=== PATIENT | male | born 1960 | race Caucasian/White ===

== ENCOUNTER 2022-02-22 13:30 | Inpatient (IN) | payer OTHER ==
[~2022-02-22] VITALS: Ht 172.7 cm; Wt 79.4 kg
--- NOTE | 2022-02-22 13:30 | NUR ---
GIL RA73 from an outpatient clinic with c/o generalized weakness, sob, hypoxia and hyperglycemia. Per report pt went to the clinic for IV antibiotics for osteomyelitis, pt arrives with a PICC Line to rt arm. Per EMS pt's blood fepai=219. Pt to room 4B via EMS gurney, room air oxygen sat=84%, pt placed on oxygen mask and RT called as requested by .
[2022-02-22 13:55] LABS: ABG BASE EXCESS -1.3 mmol/L; ABG HCO3 23.5 mmol/L; ABG PCO2 39.7 mmHg (35.0-45.0); ABG PH 7.391 (7.350-7.450); ABG PO2 114.7 mmHg (75.0-100.0); ABG SITE LEFT RADIAL; ABG TOTAL HEMOGLOBIN 8.4 G/dL (13.5-18.0); COHb 0.3 % (0.5-1.5); MetHb 0.1 % (0.0-1.5); O2Hb 97.5 % (94.0-97.0)
[2022-02-22 14:06] LABS: HEMATOCRIT 23.1 % (36.7-47.1); MEAN CORPUSCULAR HEMOGLOBIN 30.9 uug (23.8-33.4); MEAN CORPUSCULAR VOLUME 91.4 fL (73.0-96.2); PLATELET COUNT (AUTO) 339 K/uL (152-348)
[2022-02-22 14:16] LABS: CARBON DIOXIDE 27 mmol/L (21-32); CHLORIDE 96 mmol/L (98-107); CREATININE 2.8 mg/dL (0.6-1.3); POTASSIUM 4.1 mmol/L (3.5-5.1); UREA NITROGEN, BLOOD 36 mg/dL (7-18)
[2022-02-22 14:18] LABS: GLUCOSE 565 mg/dL (74-106)
[2022-02-22 14:29] LABS: ALANINE AMINOTRANSFERASE 22 U/L (16-63); ALKALINE PHOSPHATASE 112 U/L (50-136); ASPARTATE AMINOTRANSFERASE 15 U/L (15-37); BILIRUBIN,TOTAL 0.2 mg/dL (0.2-1.0); TOTAL PROTEIN, SERUM 6.3 g/dL (6.4-8.2)
[2022-02-22 14:33] LABS: ACETAMINOPHEN < 2.0 ug/mL (10-30)
[2022-02-22] MEDS ORDERED: CEFTRIAXONE /D5W 50ML IVPB **ER PYXIS IV ONE (14:42)
[2022-02-22] MEDS ORDERED: AZITHROMYCIN 500MG/ D5W 250ML IVPB **ER PYXIS ONLY IV ONE (14:42)
[2022-02-22] MEDS ORDERED: AZITHROMYCIN IV 500 MG in IV DEXTROSE 5% 250 ML IV ONE (14:45)
[2022-02-22] MEDS ORDERED: CEFTRIAXONE 1 G in IV DEXTROSE 5% 50 ML IV ONE (14:45)
--- NOTE | 2022-02-22 14:57 | NUR ---
MILY PADILLA spoke to Dr Adam for cardiology consult.
--- NOTE | 2022-02-22 14:58 | NUR ---
Pt out of ER for Ct scan.
--- NOTE | 2022-02-22 15:15 | NUR ---
Pt back from Ct, removed his Oxygen mask and c/o being short of breath.
[2022-02-22 15:48] LABS: *AMPHETAMINE, URINE POSITIVE (NEGATIVE); *CANNABINOID, URINE NEGATIVE (NEGATIVE); *COCCAINE, URINE NEGATIVE (NEGATIVE); *OPIATE, URINE NEGATIVE (NEGATIVE); *PHENCYCLIDINE SCREEN,URINE NEGATIVE (NEGATIVE)
[2022-02-22] MEDS ORDERED: DEXTROSE 50% 50 ML DISP.SYRIN IV PRN (16:00)
[2022-02-22] MEDS ORDERED: IV NS 1000 ML 1,000 ML IV ONE (16:00)
[2022-02-22] MEDS ORDERED: INSULIN REGULAR, HUMAN 300 UNITS/3 ML VIAL SQ PRN (16:00)
[2022-02-22 16:04] LABS: *BILIRUBIN,URIN NEGATIVE (NEGATIVE); *BLOOD, URINE 1+ (NEGATIVE); *CLARITY,URINE CLEAR (CLEAR); *COLOR,URINE YELLOW (YELLOW); *KETONES,URINE NEGATIVE (NEGATIVE); *UROBILINOGEN,URINE 0.2 E.U./dl (NORMAL); LEUKOCYTE ESTERASE ,URINE NEGATIVE (NEGATIVE); NITRITE, URINE NEGATIVE (NEGATIVE); UGLUCOSE 2+ (NEGATIVE)
[2022-02-22] MEDS: BLOOD SUGAR DIAGNOSTIC 1 EACH STRIP VI SCH ×2 (16:38→21:24)
[2022-02-22] MEDS ORDERED: ASPIRIN 325 MG TABLET ONE (17:07)
[2022-02-22] MEDS ORDERED: ASPIRIN 81 MG TAB.CHEW PO ONE (17:15)
--- NOTE | 2022-02-22 18:50 | NUR ---
Pt refused to change to hospital gown.
--- NOTE | 2022-02-22 18:56 | NUR ---
Pt transfered to Tele bed 312.
--- NOTE | 2022-02-22 20:47 | NUR ---
RN called MARY; unable to locate pt's unit; need to follow up home meds;
[2022-02-22 21:07] VITALS: BP 171/86
[2022-02-22 21:43] LABS: BACTERIA,URINE NONE SEEN /HPF (NONE SEEN); MUCUS,URINE FEW /LPF (0-FEW); SQUAMOUS EPITHELIAL CELL,UR FEW /HPF (NONE SEEN); WBC,URINE 0-3 /HPF (0-3)
[2022-02-22] MEDS ORDERED: ACETAMINOPHEN 325 MG TABLET PO PRN (23:00)
[2022-02-22] MEDS ORDERED: ONDANSETRON 4 MG/2 ML VIAL IV PRN (23:00)
[2022-02-22] MEDS ORDERED: hydrALAZINE HCL 25 MG TABLET PO PRN (23:15)
[2022-02-22] MEDS ORDERED: METOPROLOL TARTRATE 50 MG TABLET PO SCH (23:15)
[2022-02-22] MEDS: INSULIN GLARGINE,HUM 300 UNITS/3 ML CARTRIDGE SQ SCH (23:34)
[2022-02-23 00:53] VITALS: BP 144/78
[2022-02-23 04:25] VITALS: BP 161/90
[2022-02-23] MEDS ORDERED: IPRATROPIUM BROMIDE 0.5 MG/2.5 ML NEBU NEB PRN (06:00)
[2022-02-23] MEDS ORDERED: ALBUTEROL SULFATE 2.5 MG/ 0.5 ML NEBU NEB PRN (06:00)
[2022-02-23] MEDS: BLOOD SUGAR DIAGNOSTIC 1 EACH STRIP VI SCH ×4 (06:21→21:23)
[2022-02-23] MEDS: INSULIN REGULAR, HUMAN 300 UNIT/3 ML VIAL SQ PRN ×4 (06:25→21:31)
[2022-02-23] MEDS: PANTOPRAZOLE SODIUM 40 MG TABLET.DR PO SCH (06:30)
[2022-02-23] MEDS: MORPHINE SULFATE 2 MG/1 ML DISP.SYRIN IV PRN (06:31)
--- NOTE | 2022-02-23 06:54 | NUR ---
Pt rested well; assisted with hygiene needs; morphine given IVP x1 this AM; assisted to meet hygiene needs; home meds needs to get; endorse to AM RN
[2022-02-23] MEDS ORDERED: hydrALAZINE HCL 50 MG TABLET PO PRN (07:30)
[2022-02-23 07:41] LABS: HEMATOCRIT 22.2 % (36.7-47.1); MEAN CORPUSCULAR HEMOGLOBIN 30.9 uug (23.8-33.4); PLATELET COUNT (AUTO) 340 K/uL (152-348)
[2022-02-23 08:06] LABS: THYROID STIMULATING HORMONE 1.695 mIU/mL (0.358-3.740)
[2022-02-23 08:29] LABS: BILIRUBIN,TOTAL 0.1 mg/dL (0.2-1.0); CREATININE 2.4 mg/dL (0.6-1.3); MAGNESIUM 1.7 mg/dL (1.8-2.4); PHOSPHOROUS 3.6 mg/dL (2.5-4.9); POTASSIUM 3.9 mmol/L (3.5-5.1); TOTAL PROTEIN, SERUM 6.1 g/dL (6.4-8.2)
--- NOTE | 2022-02-23 08:32 | NUR ---
RECEIVED RESULT FROM THE LAB TROPONIN IS 325 RESULT RELAYED TO SIDNEY READ WITH NO NEW ORDERS AT THIS TIME
[2022-02-23] MEDS ORDERED: CEFTRIAXONE 1 G in IV DEXTROSE 5% 50 ML IV SCH (09:00)
[2022-02-23] MEDS ORDERED: ASPIRIN 81 MG TAB.CHEW PO SCH (09:00)
[2022-02-23] MEDS: NITROGLYCERIN OINT 1 GM PACKET TP SCH ×3 (09:02→17:19)
[2022-02-23] MEDS: FUROSEMIDE 40 MG/4 ML VIAL IV SCH ×2 (09:04→21:10)
[2022-02-23] MEDS: MIRALAX 17 GM POWD.PACK PO SCH (09:04)
[2022-02-23] MEDS: AZITHROMYCIN IV 500 MG in IV DEXTROSE 5% 250 ML IV SCH (09:05)
[2022-02-23] MEDS: hydrALAZINE HCL 50 MG TABLET PO SCH ×3 (09:13→21:13)
[2022-02-23] MEDS: CEFTRIAXONE 1 G in IV DEXTROSE 5% 50 ML IV SCH (09:46)
--- NOTE | 2022-02-23 10:23 | NUR ---
WOUND CARE CONSULT: PT PRESENTS WITH RT PLANTAR FOOT ULCER, PRESENT ON ADMISSION. DR YANES CALLED FOR DPM CONSULT. IN AGREEMENT WITH PLAN OF CARE.
[2022-02-23] MEDS ORDERED: ALBUTEROL SULFATE 2.5 MG/3 ML NEBU NEB PRN (11:00)
[2022-02-23 11:11] LABS: *BILIRUBIN,URIN NEGATIVE (NEGATIVE); *BLOOD, URINE 1+ (NEGATIVE); *CLARITY,URINE CLEAR (CLEAR); *COLOR,URINE YELLOW (YELLOW); *KETONES,URINE NEGATIVE (NEGATIVE); *UROBILINOGEN,URINE 0.2 E.U./dl (NORMAL); LEUKOCYTE ESTERASE ,URINE NEGATIVE (NEGATIVE); NITRITE, URINE NEGATIVE (NEGATIVE); PH,URINE 6.5 (5.0-8.0)
[2022-02-23 11:17] LABS: *CREATININE,URINE 44.5 mg/dL (30-125); *URINE TOTAL PROTEIN RANDOM 718.1 mg/dL (<150/24HR)
[2022-02-23 11:32] LABS: UGLUCOSE 2+ (NEGATIVE)
--- NOTE | 2022-02-23 11:33 | NUR ---
MAG LEVEL IS 1.7 WITH MAG REPLACEMENT ORDERS AND NOTED.
[2022-02-23 12:00] VITALS: BP 100/61
[2022-02-23 12:00] LABS: SQUAMOUS EPITHELIAL CELL,UR FEW /HPF (NONE SEEN); WBC,URINE 0-3 /HPF (0-3)
[2022-02-23 12:01] LABS: BACTERIA,URINE NONE SEEN /HPF (NONE SEEN)
[2022-02-23] MEDS: MAGNESIUM SULFATE/D5W 100 ML IV SCH ×2 (12:01→13:21)
--- NOTE | 2022-02-23 12:20 | NUR ---
pt is due for nitroglycerin but bp is 108/52. Nitroglycerin held at this time. Will recheck bp for further intervention.
[2022-02-23] MEDS ORDERED: HOME MED MISCELLANEOUS XX SCH (12:30)
--- NOTE | 2022-02-23 13:01 | NUR ---
CALLED THE [facility] FOR THE AGING RE NEEDS LIST OF PATIENTS HOME MEDICATIONS SPOKE WITH NURSE FRANKY STATED WILL FAX THE LIST TO US
--- NOTE | 2022-02-23 13:05 | NUR ---
RECEIVED THROUGH FAX THE HOME MED LIST FROM FRANKY AT THE [facility] AND SENT TO THE PHARMACY.
[2022-02-23] MEDS ORDERED: CLON0.1T PO (13:20)
[2022-02-23] MEDS ORDERED: CHOL100062 PO (13:20)
[2022-02-23] MEDS ORDERED: CARV6.252 PO (13:20)
[2022-02-23] MEDS ORDERED: DIPH25CA83 PO (13:20)
[2022-02-23] MEDS ORDERED: AMLO-212 PO (13:20)
[2022-02-23] MEDS ORDERED: FERR325T28 PO (13:55)
[2022-02-23] MEDS ORDERED: ESCI20TA PO (13:55)
[2022-02-23] MEDS ORDERED: FURO-152 PO (13:55)
[2022-02-23] MEDS ORDERED: FLUT16SP16 BNOSTRILS (13:55)
[2022-02-23] MEDS ORDERED: DIVA500T2 PO (13:55)
[2022-02-23] MEDS ORDERED: LATA2.5D15 EACHEYE (14:00)
[2022-02-23] MEDS ORDERED: PREG75CA PO (14:00)
[2022-02-23] MEDS ORDERED: POLY17PO4 PO (14:00)
[2022-02-23] MEDS ORDERED: INSU100V7 SQ (14:00)
[2022-02-23] MEDS ORDERED: TAMS-3 PO (14:00)
[2022-02-23] MEDS ORDERED: SENN-86 PO (14:00)
[2022-02-23] MEDS ORDERED: IPRA42SP BNOSTRILS (14:00)
[2022-02-23] MEDS ORDERED: CLOT15CR36 TP (14:03)
[2022-02-23] MEDS ORDERED: KETO120S5 TP (14:03)
[2022-02-23 16:00] VITALS: BP 120/61
--- NOTE | 2022-02-23 18:00 | NUR ---
RESTING COMFORTABLY DENIES DISCOMFORTS NO ADVERSE OR ALLERGIC REACTIONS NOTED FROM ANTIBIOTICS ORDERED WILL CONTINUE TO OBSERVE.
--- NOTE | 2022-02-23 19:38 | NUR ---
Received patient resting comfortably in bed. AAOx4. No distress and pain noted at this time. UZMA IV site is intact and patent. Concerns were communicated with patient. Needs were addressed at this time and met. Safety and comfort measures enforced.
[2022-02-23 20:00] VITALS: BP 91/56
[2022-02-23] MEDS: ATORVASTATIN 40 MG TABLET PO SCH (21:11)
--- NOTE | 2022-02-23 21:13 | NUR ---
Held hydralazine d/t low BP of 90/53 noted. No signs of distress or chest pain noted at this time. Nitro-bid ointment patch was already removed at this time. Will continue to monitor.
[2022-02-23] MEDS: INSULIN GLARGINE,HUM 300 UNITS/3 ML CARTRIDGE SQ SCH (21:28)
[2022-02-24] VITALS: BP 157/80
[2022-02-24] MEDS: NITROGLYCERIN OINT 1 GM PACKET TP SCH ×2 (00:42→06:25)
[2022-02-24 04:00] VITALS: BP 172/87
[2022-02-24] MEDS: MORPHINE SULFATE 2 MG/1 ML DISP.SYRIN IV PRN ×2 (05:41→19:39)
[2022-02-24] MEDS: hydrALAZINE HCL 50 MG TABLET PO SCH ×3 (06:24→21:16)
[2022-02-24] MEDS: PANTOPRAZOLE SODIUM 40 MG TABLET.DR PO SCH (06:25)
[2022-02-24 07:04] LABS: HEMATOCRIT 21.6 % (36.7-47.1); MEAN CORPUSCULAR HEMOGLOBIN 31.7 uug (23.8-33.4); PLATELET COUNT (AUTO) 349 K/uL (152-348)
[2022-02-24] MEDS: BLOOD SUGAR DIAGNOSTIC 1 EACH STRIP VI SCH ×4 (07:09→21:04)
[2022-02-24 07:29] LABS: BILIRUBIN,TOTAL 0.1 mg/dL (0.2-1.0); CREATININE 2.5 mg/dL (0.6-1.3); MAGNESIUM 2.1 mg/dL (1.8-2.4); PHOSPHOROUS 3.6 mg/dL (2.5-4.9); POTASSIUM 3.8 mmol/L (3.5-5.1); TOTAL PROTEIN, SERUM 6.5 g/dL (6.4-8.2)
--- NOTE | 2022-02-24 07:45 | NUR ---
Patient slept intermittently throughout the night. No distress or complaints of pain noted at this time. Is SR on tele monitor, HR 92. BM x1 during shift. Safety and comfort measures maintained.
[2022-02-24] MEDS: INSULIN REGULAR, HUMAN 300 UNIT/3 ML VIAL SQ PRN ×3 (07:53→21:14)
[2022-02-24] MEDS: MIRALAX 17 GM POWD.PACK PO SCH (09:08)
[2022-02-24] MEDS: AZITHROMYCIN IV 500 MG in IV DEXTROSE 5% 250 ML IV SCH (09:08)
[2022-02-24] MEDS: FUROSEMIDE 40 MG/4 ML VIAL IV SCH (09:08)
[2022-02-24] MEDS: CEFTRIAXONE 1 G in IV DEXTROSE 5% 50 ML IV SCH (10:04)
--- NOTE | 2022-02-24 10:20 | NUR ---
DR MINDA VALENTINE HERE AND SEEN PATIENT WITH NEW ORDERS AND OTED.
--- NOTE | 2022-02-24 10:30 | NUR ---
Social Work consult was requested for a patient in the emergency room for substance abuse resources. Patient is a 61-year-old male. Patient presents with anxious mood and congruent affect. Patient presents with poor insight and judgement. Patient states he does not have a primary contact. Patient states he is currently living in a one-story house at [address] [id number]. LINDSAY spoke to the patients social service technician, Yasmani, at [facility] [address] [facility] [address] ([phone]) and he confirmed the patients address. Patient states he is receiving SSI, does not have any medical equipment at home, and is not driving. Patient denies a history of substance abuse. The toxicology report is positive for amphetamines. LINDSAY provided the patient with substance abuse resources for [address] [address] ([phone]), [facility] [address] [facility] [address] ([phone]), and [address] [address] ([phone]). Patient appeared unmotivated for treatment and states he can quit whenever I want. Patient denies a history of psychiatric diagnosis. Patient denies suicidal or homicidal ideation. Patients social service technician, Yasmani ([phone]) states that he will arrange transportation when the patient is discharged home to [address] [place] [address]. LINDSAY informed geriatric case managerBenjy.
[2022-02-24 12:00] VITALS: BP 168/66
[2022-02-24] MEDS ORDERED: SOD FERRIC GLUC COMPLX/SUCROSE 125 MG in IV NORMAL SALINE 100 ML IV ONE (15:00)
[2022-02-24 16:00] VITALS: BP 130/61
--- NOTE | 2022-02-24 18:00 | NUR ---
IN BED EASILY ANGRY USING BAD WORDS BUT ALLOWS CARE LUPE ATB ORDERED WITH NO ADVERSE OR ALLERGIC REACTIONS AT THIS TIME MADE COMFORTABLE WILL CONTINUE TO OBSERVE.
[2022-02-24 20:00] VITALS: BP 138/69
--- NOTE | 2022-02-24 20:09 | NUR ---
Received patient laying in bed. Was verbally agitated but then relaxed when needs were attended to and met. Complained of 9/10 generalized pain and administered morphine at 1939. After reassessment patient did not complain of pain. Is SR on tele monitor, HR 98. On room air with no signs or complaints of distress. Communicated plan of care and verbally understood. Safety and comfort measures enforced.
[2022-02-24] MEDS: ATORVASTATIN 40 MG TABLET PO SCH (21:04)
[2022-02-24] MEDS: INSULIN GLARGINE,HUM 300 UNITS/3 ML CARTRIDGE SQ SCH (21:11)
[2022-02-25] VITALS: BP 123/54
[2022-02-25] MEDS: MORPHINE SULFATE 2 MG/1 ML DISP.SYRIN IV PRN (03:49)
[2022-02-25 06:11] VITALS: BP 174/87
[2022-02-25 06:13] VITALS: BP 174/87
[2022-02-25] MEDS: PANTOPRAZOLE SODIUM 40 MG TABLET.DR PO SCH (06:13)
[2022-02-25] MEDS: hydrALAZINE HCL 50 MG TABLET PO SCH (06:13)
--- NOTE | 2022-02-25 06:55 | NUR ---
Patient slept intermittently throughout the night. Would show agitation through use of verbal slurs but is cooperative with plan of care. No signs of distress or complaints of pain noted at this time. Is SR w/ rare PACs on tele monitor, HR 90. No signs of diabetic crisis. All needs were attended to and met. Safety and comfort measures maintained.
[2022-02-25 07:11] LABS: CREATININE 2.2 mg/dL (0.6-1.3); POTASSIUM 4.3 mmol/L (3.5-5.1)
[2022-02-25] MEDS: BLOOD SUGAR DIAGNOSTIC 1 EACH STRIP VI SCH (07:20)
--- NOTE | 2022-02-25 07:30 | NUR ---
IN BED ASLEEP EASILY AROUSABLE ON ROOM AIR WITH NO SHORTNESS OF BREATH NO S/S OF PAIN OR DISCOMFORTS AT THIS TIME NO S/S OF HYPO/HYPERGLYCEMIC REACTIONS PICC LINE RIGHT UPPER ARM INTACT CALL LIGHTS AND PERSONAL BELONGINGS ARE WITHIN EASY REACH AT THIS TIME WILL CONTINUE TO OBSERVE.
[2022-02-25] MEDS: INSULIN REGULAR, HUMAN 300 UNIT/3 ML VIAL SQ PRN (07:50)
[2022-02-25 08:02] LABS: HEMATOCRIT 24.1 % (36.7-47.1); MEAN CORPUSCULAR HEMOGLOBIN 30.8 uug (23.8-33.4); MEAN CORPUSCULAR VOLUME 91.4 fL (73.0-96.2); PLATELET COUNT (AUTO) 392 K/uL (152-348)
[2022-02-25] MEDS: MIRALAX 17 GM POWD.PACK PO SCH (08:29)
[2022-02-25] MEDS ORDERED: AZITHROMYCIN 250 MG TABLET PO SCH (09:00)
[2022-02-25] MEDS ORDERED: FERROUS SULFATE 325 MG TABEC PO SCH (09:00)
[2022-02-25] MEDS ORDERED: FUROSEMIDE 40 MG TABLET PO SCH (09:00)
[2022-02-25] MEDS ORDERED: MUPIROCIN 2% OINT 22 GM TUBE NS SCH (09:00)
[2022-02-25] MEDS ORDERED: HYDR50TA68 PO (09:29)
[2022-02-25] MEDS ORDERED: ATOR40TA PO (09:29)
[2022-02-25] MEDS ORDERED: FURO40TA5 PO (09:29)
[2022-02-25] MEDS: CEFTRIAXONE 1 G in IV DEXTROSE 5% 50 ML IV SCH (10:06)
--- NOTE | 2022-02-25 10:35 | NUR ---
WAS NOTIFIED BY THE ELECTRIC MOTOR ASSEMBLER JET MECHANIC THAT PATIENT WILL BE PICKED UP AT 1130 BY HIS FACILITY PERIPHERAL VASCULAR TECH PATIENT AWARE WILL START HIS DISCHARGE PAPERS.
--- NOTE | 2022-02-25 11:00 | NUR ---
PATIENT IS ALL DRESSED UP STANDING IN FRONT OF HIS ROOM STATED THAT HE IS LEAVING NOW ENCOURAGED HIM TO GO BACK TO HIS ROOM AND WAIT FOR HIS PAPER WORK AND THAT THE PAINTER SPRAY WILL BE HERE ABOUT 1130 PER THE LAUNDRY CLERK.ATTEMPTED TO TAKE PICTURES OF HIS RIGHT FOOT SOLE PER PROTOCOL BUT HE REFUSED STATED HE HAS NOTHING THERE AND DOES NOT WANT ANY PICS TAKEN PATIENTS RIGHT TO REFUSE RESPECTED.
--- NOTE | 2022-02-25 11:15 | NUR ---
PATIENT IS AGAIN ANXIOUS WANTS TO LEAVE HE HAS ALL HIS BELONGINGS AND STANDING IN THE [address] WANTS TO GO DOWN MANAGED TO GET HIM TO SIGN HIS DISCHARGE PAPERS AND ESCORTED HIM THE THE FIRST FLOOR LOBBY STATED WILL WAIT FOR HIS RIDE THERE.PATIENT LEFT IN SATISFACTORY CONDITION WITH HIS PICC LINE INTACT WHICH HE WAS ADMITTED WITH FROM THE [facility].
[2022-02-25 12:06] LABS: A/G RATIO 0.5 (0.7-1.7); ALBUMIN 1.8 g/dL (2.9-4.4); ALPHA-1-GLOBULIN 0.2 g/dL (0.0-0.4); ALPHA-2-GLOBULIN 1.1 g/dL (0.4-1.0); BETA GLOBULIN 0.9 g/dL (0.7-1.3); GAMMA GLOBULIN 1.1 g/dL (0.4-1.8); GLOBULIN, TOTAL 3.4 g/dL (2.2-3.9); M-SPIKE Not Observed g/dL (Not Observed)
== END 2022-02-25 11:15 | DRG 280 ==
LOC: ER 13:30 → TELE3 18:27 → MEDSURG3 02-25 08:56
PROVIDERS: ADMIT Internal Medicine; ATTEND Nurse Practitioner Acute Care
DX: I13.0 Hypertensive heart and chronic kidney disease with heart failure and stage 1 through stage 4 chronic kidney disease, or unspecified chronic kidney disease (principal); J96.01 Acute respiratory failure with hypoxia; N17.0 Acute kidney failure with tubular necrosis; I21.A1 Myocardial infarction type 2; J18.9 Pneumonia, unspecified organism; G92.8 Other toxic encephalopathy; E43 Unspecified severe protein-calorie malnutrition; I50.33 Acute on chronic diastolic (congestive) heart failure; J44.0 Chronic obstructive pulmonary disease with (acute) lower respiratory infection; E87.1 Hypo-osmolality and hyponatremia; J90 Pleural effusion, not elsewhere classified; M86.9 Osteomyelitis, unspecified; I69.351 Hemiplegia and hemiparesis following cerebral infarction affecting right dominant side; E11.22 Type 2 diabetes mellitus with diabetic chronic kidney disease; F17.210 Nicotine dependence, cigarettes, uncomplicated; I25.10 Atherosclerotic heart disease of native coronary artery without angina pectoris; K56.41 Fecal impaction; N18.9 Chronic kidney disease, unspecified; N40.0 Benign prostatic hyperplasia without lower urinary tract symptoms; Z59.00 Homelessness unspecified; Z91.199 Patient's noncompliance with other medical treatment and regimen due to unspecified reason; E78.5 Hyperlipidemia, unspecified; E88.09 Other disorders of plasma-protein metabolism, not elsewhere classified; F32.A Depression, unspecified; E11.65 Type 2 diabetes mellitus with hyperglycemia; D64.9 Anemia, unspecified; G40.909 Epilepsy, unspecified, not intractable, without status epilepticus; E11.51 Type 2 diabetes mellitus with diabetic peripheral angiopathy without gangrene; F41.9 Anxiety disorder, unspecified; F15.10 Other stimulant abuse, uncomplicated; E11.42 Type 2 diabetes mellitus with diabetic polyneuropathy; E11.21 Type 2 diabetes mellitus with diabetic nephropathy; E11.621 Type 2 diabetes mellitus with foot ulcer; L97.519 Non-pressure chronic ulcer of other part of right foot with unspecified severity; E11.69 Type 2 diabetes mellitus with other specified complication; Z20.822 Contact with and (suspected) exposure to COVID-19; Z79.4 Long term (current) use of insulin; Z68.26 Body mass index [BMI] 26.0-26.9, adult
CPT/HCPCS: 36415; 36600; 70450; 71045; 71250; 73630; 83550; 83605; 83690; 83735; 83970; 84100; 84155; 84156; 84165; 84300; 84443; 84484; 85025; 85610; 86704; 86706; 86803; 87040; 93005; 93307; A4663; A6209; A6213; G0378; J0456; J0696; J1815; J1940; J2270; J2916; J3475; J7040; J7050; Q0144